=== PATIENT | female | born 1965 | race Two or more races ===

== ENCOUNTER 2020-07-18 14:56 | Outpatient (CLI) | payer MEDICAID | END 2020-07-18 23:59 | disposition home or self-care (01) | LOC: CFH 14:56 | PROVIDERS: ATTEND Internal Medicine Cardiovascular Disease | DX: I34.0 Nonrheumatic mitral (valve) insufficiency (principal); I10 Essential (primary) hypertension; R00.2 Palpitations | CPT/HCPCS: 93306 ==